=== PATIENT | female | born 1980 | race Two or more races ===

== ENCOUNTER 2024-11-08 11:13 | Emergency (ER) | payer OTHER ==
[~2024-11-08] VITALS: Ht 157.5 cm; Wt 68.0 kg
[2024-11-08] MEDS ORDERED: MECLIZINE HCL 25 MG TABLET PO ONE (12:15)
[2024-11-08 13:17] LABS: BASO % 1.3 % (0.1-1.2); EOS # 0.32 (0.04-0.54); EOS % 4.5 % (0.7-7.0); LYMPH # 1.29 (1.18-3.74); LYMPH % 18.0 % (19.3-53.1); MEAN PLATELET VOLUME 11.10 fl (9.4-12.4); MONO # 0.61 (0.24-0.82); MONO % 8.5 % (4.7-12.5); NEUT # 4.86 (1.56-6.13); NEUT % 67.6 % (34.0-71.1); RED CELL DISTRIBUTION WIDTH 11.7 % (11.6-14.4)
[2024-11-08 13:48] LABS: COVID-19 AG NEGATIVE (NEGATIVE)
[2024-11-08 13:52] LABS: ALT/SGPT 22 U/L (12-78); AST/SGOT 17 U/L (15-37); BILIRUBIN TOTAL 0.47 mg/dL (0.3-1.2); BUN CREA RATIO 23 (7.0-25.0); CREATININE SERUM 0.52 mg/dL (0.55-1.02); GFR 129.32; GLOBULINA 3.3 G/DL (2.4-3.5); GLUCOSE FASTING 78 mg/dL (65-100); OSMOLALITY SERUM 282 MOSM/KG (275-295)
[2024-11-08 14:00] LABS: HCG QUANTITATIVE < 1 mUI/mL (1-3)
[2024-11-08] MEDS ORDERED: ANTIVERT25 M2 PO (14:30)
== END 2024-11-08 14:40 | disposition home or self-care (01) ==
LOC: ER 11:13
PROVIDERS: General Practice
DX: R42 Dizziness and giddiness (principal); Z20.822 Contact with and (suspected) exposure to COVID-19